=== PATIENT | female | born 1995 | race American Indian/Alaskan Native ===

== ENCOUNTER 2018-10-19 12:57 | Emergency (ER) | payer BC ==
[2018-10-19 12:57] VITALS: BMI 18.3
[2018-10-19 13:08] VITALS: TEMP 99.1
[2018-10-19] MEDS ORDERED: Sodium Chloride 0.9% 500 ML IV STA (13:21)
--- NOTE | 2018-10-19 13:34 | ED PDOC ---
Arrival/HPI - General Chief Complaint: Abdominal Pain Time Seen by Provider: 10/19/18 13:11 Historian: Patient - History of Present Illness Narrative History of Present Illness (Text): 10/19/18 13:30 22 year old female, with no significant past medical history and history of regular menses, presents to the ED for evaluation of suprapubic cramping and vaginal spotting since 1 week. Patient reports associated mild headache for past few days nut denies any other complaints. Patient denies any fevers, chills, headache, dizziness, chest pain, shortness of breath, dyspnea on exertion, cough, nausea, vomiting, diarrhea, dysuria, changes in bowel habits, back pain, neck pain, or any other complaints. Patient reports history of 6 months ago. Time/Duration: 1 week Symptom Onset: Gradual Symptom Course: Unchanged Activities at Onset: Light Context: Home Past Medical History - Provider Review Nursing Documentation Reviewed: Yes - Infectious Disease Hx of Infectious Diseases: None - Reproductive Menopause: No - Cardiac Hx Cardiac Disorders: No - Pulmonary Hx Asthma: Yes - Psychiatric Hx Substance Use: Yes - Past Surgical History Past Surgical History: No Previous - Anesthesia Hx Anesthesia: No Family/Social History - Physician Review Nursing Documentation Reviewed: Yes Family/Social History: No Known Family HX Smoking Status: Never Smoked Hx Alcohol Use: No Hx Substance Use: Yes Substance used: CANNABIS Allergies/Home Meds Allergies/Adverse Reactions: Allergies shellfish derived Allergy (Verified 04/17/18 17:25) RASH Review of Systems - Review of Systems Constitutional: absent: Fevers Eyes: absent: Vision Changes Respiratory: absent: SOB, Cough Cardiovascular: absent: Chest Pain, LÓPEZ Gastrointestinal: Abdominal Pain. absent: Stool Changes, Constipation, Diarrhea, Nausea, Vomiting Genitourinary Female: Vaginal Bleeding. absent: Dysuria, Urine Output Changes Musculoskeletal: absent: Back Pain, Neck Pain Skin: absent: Rash Neurological: Headache. absent: Dizziness, Focal Weakness Endocrine: absent: Diaphoresis, Polyuria Psychiatric: absent: Anxiety Physical Exam Vital Signs Reviewed: Yes Vital Signs Temp Pulse Resp BP Pulse Ox 10/19/18 13:04 99.1 F 99 H 20 122/62 100 Temperature: Afebrile Blood Pressure: Normal Pulse: Regular Respiratory Rate: Normal Appearance: Positive for: Well-Appearing, Non-Toxic, Comfortable Pain Distress: None Mental Status: Positive for: Alert and Oriented X 3 - Systems Exam Head: Present: Atraumatic, Normocephalic Pupils: Present: PERRL Extroacular Muscles: Present: EOMI Conjunctiva: Present: Normal Respiratory/Chest: Present: Clear to Auscultation, Good Air Exchange. No: Respiratory Distress, Accessory Muscle Use Cardiovascular: Present: Regular Rate and Rhythm, Normal S1, S2. No: Murmurs Abdomen: No: Tenderness, Distention, Peritoneal Signs Back: Present: Normal Inspection. No: CVA Tenderness Upper Extremity: Present: Normal Inspection. No: Cyanosis, Edema Lower Extremity: Present: Normal Inspection. No: Edema Neurological: Present: GCS=15, Speech Normal Skin: Present: Warm, Dry, Normal Color. No: Rashes Psychiatric: Present: Alert, Oriented x 3, Normal Insight, Normal Concentration Medical Decision Making ED Course and Treatment: 10/19/18 13:20 Impression: 22 year old female presents to the ED for evaluation of suprapubic abdominal pain and vaginal spotting. Plan: -- Labs -- IV Fluids -- Tylenol -- Urine Culture -- Urinalysis -- US Transvaginal -- Reassess and disposition Prior Visits: Notes and results from previous visits were reviewed. Progress Notes: 10/19/18 13:25 Urine test positive. Patient reports this is her 2nd and had an 6 months ago. 10/19/18 15:32 COMPARISON: Transabdominal and transvaginal obstetric ultrasound was performed with longitudinal and transverse images submitted for interpretation. FINDINGS: UTERUS: Gestational sac: Within the endometrial cavity is identified a a fluid collection within apparent yolk sac suggestive of early intrauterine gestation. No pole is yet recognizable including on trans vaginal technique. Mean sac diameter measures 0.51 cm suggesting less than 5 or 6 week estimated gestational age, concordant with LMP derived dates. Heart rate: N/a a bpm. age (Ultrasound estimated): See above. Deepali-gestational hemorrhage: None. Date of delivery (Ultrasound estimated) : Uncertain. Uterus measures 9.1 x 4.5 x 5.8 cm. Normal in size and appearance. Endometrium measures 1.2 cm. CERVIX: Measures 3.0 cm cm. Long and closed. No cervical abnormality seen. RIGHT OVARY: Measures 5.5 x 4.2 x 4.0 cm cm. No mass lesion. Normal flow. Simple cyst measures 4.5 x 3.5 x 3.9 cm suggestive of possible corpus luteum cyst. LEFT OVARY: Measures 2.9 x 1.8 x 3.1 cm. No solid mass. Normal flow. FREE FLUID: None. OTHER FINDINGS: None. IMPRESSION: Intrauterine gestation is suggested with yolk sac but no pole yet identifiable at this time. This may reflect an early intrauterine gestation less than 5 weeks estimated gestational age. Differential diagnosis is failure of gestation. Ectopic gestation is not identified and is unlikely given the aforementioned findings but is not completely excluded. Clinical correlation is advised including serial beta HCG analysis and one-week follow-up transvaginal pelvic ultrasound. Blood type B+ 10/19/18 15:34 Ultrasound reviewed and detailed return instructions given. - RAD Interpretation Radiology Orders: 10/19/18 13:20 TRANSVAGINAL [US] Stat - Medication Orders Current Medication Orders: Sodium Chloride (Sodium Chloride 0.9%) 500 mls @ 999 mls/hr IV .Q31M STA Stop: 10/19/18 13:51 Discontinued Medications Acetaminophen (Tylenol 325mg Tab) 650 mg PO STAT STA Stop: 10/19/18 13:22 - Scribe Statement The provider has reviewed the documentation as recorded by the Scribe Estrella Mayes. All medical record entries made by the Scribe were at my direction and personally dictated by me. I have reviewed the chart and agree that the record accurately reflects my personal performance of the history, physical exam, medical decision making, and the department course for this patient. I have also personally directed, reviewed, and agree with the discharge instructions and disposition. Disposition/Present on Arrival - Present on Arrival Any Indicators Present on Arrival: No History of DVT/PE: No History of Uncontrolled Diabetes: No Urinary Catheter: No History of Decub. Ulcer: No History Surgical Site Infection Following: None - Disposition Have Diagnosis and Disposition been Completed?: Yes Diagnosis: Threatened , Disposition: HOME/ ROUTINE Disposition Time: 15:32 Patient Plan: Discharge Condition: GOOD Discharge Instructions (ExitCare): Threatened Miscarriage, Bleeding With Additional Instructions: Follow-up with COLOR PRINTER OPERATOR within 2 days. Return to ED if condition worsens. Take vitamin daily Prescriptions: Multivit/Folic Acid/I [ Plus] 1 tab PO DAILY #30 tab Referrals: Daija Paul MD [Primary Care Provider] - Follow up with primary Forms: [facility] (Italian)
[2018-10-19 13:44] LABS: BASO # 0.01 K/mm3 (0.0-2.0); BASO % 0.1 % (0.0-3.0); EOS # 0.2 (0.0-0.7); EOS % 3.4 % (1.5-5.0); HEMOGLOBIN 13.2 g/dL (12.0-16.0); LYMPH # 2.2 (1.2-3.4); LYMPH % 31.6 % (22.0-35.0); MEAN CELL VOLUME 86.2 fl (80.0-105.0); MEAN CORPUSCULAR HEMOGLOBIN 28.4 pg (25.0-35.0); MEAN PLATELET VOLUME 8.9 fl (7.0-11.0); MONO # 0.6 (0.1-0.6); MONO % 8.4 % (1.0-6.0); RBC 4.64 10^6/uL (3.5-6.1); RED CELL DISTRIBUTION WIDTH 13.5 % (11.5-14.5); WHITE BLOOD COUNT 6.8 10^3/uL (4.5-11.0)
[2018-10-19 13:47] LABS: URINE APPEARANCE CLEAR (CLEAR); URINE BILIRUBIN NEGATIVE (NEGATIVE); URINE BLOOD TRACE-LYSED (NEGATIVE); URINE COLOR YELLOW (YELLOW); URINE GLUCOSE (UA) NEGATIVE (NEGATIVE); URINE LEUKOCYTE ESTERASE NEGATIVE Leu/uL (NEGATIVE); URINE PROTEIN NEGATIVE mg/dL (<30 mg/dL); URINE UROBILINOGEN 0.2 E.U./dL (<1 E.U./dL)
[2018-10-19 14:00] LABS: ALB/GLOB RATIO 1.2 (1.1-1.8); ALBUMIN 4.4 g/dL (3.0-4.8); ALT/SGPT 27 U/L (7-56); AST/SGOT 33 U/L (14-36); BLOOD UREA NITROGEN 13 mg/dL (7-21); CALCIUM 9.7 mg/dL (8.4-10.5); GFR NON-AFRICAN AMERICAN > 60
[2018-10-19 14:02] LABS: URINE BACTERIA FEW /hpf; URINE RBC 0 - 2 /hpf (0-2); URINE WBC 0 - 2 /hpf (0-6)
--- NOTE | 2018-10-19 15:34 | US ---
Date of service: 10/19/2018 PROCEDURE: OB Pelvic Ultrasound HISTORY: , vaginal bleeding and pain LMP: 09/12/2018 suggesting 5 week 2 day gestation. COMPARISON: Transabdominal and transvaginal obstetric ultrasound was performed with longitudinal and transverse images submitted for interpretation. FINDINGS: UTERUS: Gestational sac: Within the endometrial cavity is identified a a fluid collection within apparent yolk sac suggestive of early intrauterine gestation. No pole is yet recognizable including on trans vaginal technique. Mean sac diameter measures 0.51 cm suggesting less than 5 or 6 week estimated gestational age, concordant with LMP derived dates. Heart rate: N/a a bpm. age (Ultrasound estimated): See above. Deepali-gestational hemorrhage: None. Date of delivery (Ultrasound estimated) : Uncertain. Uterus measures 9.1 x 4.5 x 5.8 cm. Normal in size and appearance. Endometrium measures 1.2 cm. CERVIX: Measures 3.0 cm cm. Long and closed. No cervical abnormality seen. RIGHT OVARY: Measures 5.5 x 4.2 x 4.0 cm cm. No mass lesion. Normal flow. Simple cyst measures 4.5 x 3.5 x 3.9 cm suggestive of possible corpus luteum cyst. LEFT OVARY: Measures 2.9 x 1.8 x 3.1 cm. No solid mass. Normal flow. FREE FLUID: None. OTHER FINDINGS: None. IMPRESSION: Intrauterine gestation is suggested with yolk sac but no pole yet identifiable at this time. This may reflect an early intrauterine gestation less than 5 weeks estimated gestational age. Differential diagnosis is failure of gestation. Ectopic gestation is not identified and is unlikely given the aforementioned findings but is not completely excluded. Clinical correlation is advised including serial beta HCG analysis and one-week follow-up transvaginal pelvic ultrasound.
[2018-10-19 15:45] VITALS: BP 117/72; PULSE 76; RESP 18; O2SAT 99
== END 2018-10-19 15:47 | disposition home or self-care (01) ==
LOC: ED 12:57
DX: O20.0 Threatened abortion (principal); Z3A.00 Weeks of gestation of pregnancy not specified
CPT/HCPCS: 76817; 80053; 81001; 81025; 84702; 85025; 86850; 86900; 87086; 99285; J7040

== ENCOUNTER 2018-11-10 08:16 | Emergency (ER) | payer BC ==
[2018-11-10 08:27] VITALS: O2SAT 100; BMI 31.6
--- NOTE | 2018-11-10 08:48 | ED PDOC ---
Arrival/HPI - General Chief Complaint: Female Genitourinary Time Seen by Provider: 11/10/18 08:27 Historian: Patient - History of Present Illness Narrative History of Present Illness (Text): 11/10/18 08:46 22 f with no significant pmhx presents to the ED with vaginal bleeding. Patient is approx 8 weeks , bleeding noticed when wiping, no pelvic pain, no dysuria, no vomiting. Patient reports a normal US performed at 5 weeks. No other physical complaints at this time. Symptom Onset: Gradual Symptom Course: Unchanged Activities at Onset: Light Context: Home Past Medical History - Provider Review Nursing Documentation Reviewed: Yes - Infectious Disease Hx of Infectious Diseases: None - Cardiac Hx Cardiac Disorders: No - Pulmonary Hx Asthma: Yes - Psychiatric Hx Substance Use: Yes - Past Surgical History Past Surgical History: No Previous - Anesthesia Hx Anesthesia: No Family/Social History - Physician Review Nursing Documentation Reviewed: Yes Family/Social History: Unknown Family HX Smoking Status: Never Smoked Hx Alcohol Use: No Hx Substance Use: Yes Substance used: CANNABIS Allergies/Home Meds Allergies/Adverse Reactions: Allergies shellfish derived Allergy (Verified 11/10/18 08:27) RASH Review of Systems - Physician Review All systems were reviewed & negative as marked: Yes - Review of Systems Gastrointestinal: absent: Nausea, Vomiting Genitourinary Female: Vaginal Bleeding. absent: Dysuria Physical Exam - Physical Exam Narrative Physical Exam (Text): 11/10/18 08:47 Gen: VS reviewed, alert, well developed, well nourished, nontoxic, mild distress Eye: EOMI, PERRL Neck: no JVD, supple, no adenopathy Abd: soft, nontender, no guarding, no rebound, no rigidity Skin: good color, no rash, no cyanosis Psych: responds appropriately to questions, normal affect Neuro: oriented x3, CN2-12 intact grossly, motor intact, sensation intact Vital Signs Temp Pulse Resp BP Pulse Ox 11/10/18 08:27 97.8 F 100 H 18 134/80 100 Medical Decision Making ED Course and Treatment: 11/10/18 08:48 Patient presets to the ED with painless vaginal bleeding, will do labs and US to eval viability of . - RAD Interpretation Narrative RAD Interpretations (Text): 11/10/18 10:29 Transvaginal Ultrasound reviewed by Derek Breaux MD, shows: Single intrauterine with estimated gestational age 5 weeks 5 days by gestational sac calculation and 6 weeks 2 days by crown-rump length calculation. Yolk sac measures approximately 8 mm, larger than expected. heart rate is not detected at this time. Correlate clinically and recommend V[employer]U[facility] FILTER OPERATOR consultation and short interval follow-up as indicated. [employer]ch[employer] Res[employer] Purchasing Agent: Radiologist - Scribe Statement The provider has reviewed the documentation as recorded by the Scribe Beba Sargent All medical record entries made by the Scribe were at my direction and personally dictated by me. I have reviewed the chart and agree that the record accurately reflects my personal performance of the history, physical exam, medical decision making, and the department course for this patient. I have also personally directed, reviewed, and agree with the discharge instructions and disposition. Disposition/Present on Arrival - Present on Arrival Any Indicators Present on Arrival: No History of DVT/PE: No History of Uncontrolled Diabetes: No Urinary Catheter: No History of Decub. Ulcer: No History Surgical Site Infection Following: None - Disposition Have Diagnosis and Disposition been Completed?: Yes Diagnosis: Threatened , Vaginitis, Bacteriuria, asymptomatic in Disposition: HOME/ ROUTINE Disposition Time: 18:06 (not actual time) Patient Plan: Discharge Condition: STABLE Discharge Instructions (ExitCare): Threatened Miscarriage, Asymptomatic Bacteriuria Additional Instructions: you must follow up with asset specialist as soon as possible. your hcg quant level ( hormone level is 2653 today). Prescriptions: Cephalexin [cephalexin] 500 mg PO BID 5 Days #10 cap Miconazole Nitrate [Miconazole 7] 100 mg VG DAILY 7 Days #7 supp.vag Referrals: [facility] [Outside] - Follow up with primary Terell Friend DO [Staff Provider] - Follow up with primary Forms: [employer] (South African)
[2018-11-10 09:08] LABS: PH,URINE 6.5 (4.7-8.0); URINE BILIRUBIN NEGATIVE (NEGATIVE); URINE BLOOD LARGE (NEGATIVE); URINE GLUCOSE (UA) NEGATIVE (NEGATIVE); URINE LEUKOCYTE ESTERASE TRACE Leu/uL (NEGATIVE); URINE PROTEIN 30 mg/dL (<30 mg/dL); URINE UROBILINOGEN 0.2 E.U./dL (<1 E.U./dL)
[2018-11-10 09:18] LABS: URINE APPEARANCE CLEAR (CLEAR); URINE COLOR YELLOW (YELLOW)
[2018-11-10 09:23] LABS: URINE AMORPHOUS SEDIMENT FEW /hpf; URINE BACTERIA MANY /hpf; URINE EPITHELIAL CELLS MANY /hpf (0-5); URINE RBC 25 - 30 /hpf (0-2)
[2018-11-10 09:31] LABS: BASO # 0.01 K/mm3 (0.0-2.0); BASO % 0.2 % (0.0-3.0); EOS # 0.2 (0.0-0.7); EOS % 4.5 % (1.5-5.0); HEMOGLOBIN 13.5 g/dL (12.0-16.0); LYMPH # 1.5 (1.2-3.4); LYMPH % 31.9 % (22.0-35.0); MEAN CELL VOLUME 85.2 fl (80.0-105.0); MEAN CORPUSCULAR HEMOGLOBIN 28.9 pg (25.0-35.0); MEAN CORPUSCULAR HGB CONC 33.9 g/dl (31.0-37.0); MEAN PLATELET VOLUME 8.9 fl (7.0-11.0); MONO # 0.3 (0.1-0.6); MONO % 6.2 % (1.0-6.0); RBC 4.67 10^6/uL (3.5-6.1); RED CELL DISTRIBUTION WIDTH 13.1 % (11.5-14.5); WHITE BLOOD COUNT 4.7 10^3/uL (4.5-11.0)
--- NOTE | 2018-11-10 10:24 | US ---
Date of service: 11/10/2018 Indication: early gestation, bleeding, viability Comparison: Ob transvaginal ultrasound performed 10/19/18 Technique: Real-time transabdominal pelvic ultrasound was performed. In addition a transvaginal pelvic ultrasound was necessary to better depict pelvic anatomy. Findings: Uterus measures approximately 8.3 x 5.4 x 5.9 cm. Anteverted. Cervix length measures approximately 3.3 cm. There is a single intrauterine fetus present. The gestational sac measures 1.5 cm and is compatible with a gestational age of 5 weeks 5 days. 8 mm yolk sac. The crown-rump length measures 0.6 cm and is compatible with a gestational age of 6 weeks 2 days. heart motion is not detected. The right ovary measures 4.6 x 2.7 x 2.8 cm. The left ovary measures 2.5 x 2.2 x 3.2 cm. Blood flow was demonstrated to both ovaries. Impression: Single intrauterine with estimated gestational age 5 weeks 5 days by gestational sac calculation and 6 weeks 2 days by crown-rump length calculation. Yolk sac measures approximately 8 mm, larger than expected. heart rate is not detected at this time. Correlate clinically and recommend HOUSE CALLS NURSE consultation and short interval follow-up as indicated.
[2018-11-10 11:13] VITALS: BP 122/77; PULSE 87; RESP 17; TEMP 97.9
== END 2018-11-10 11:15 | disposition home or self-care (01) ==
LOC: ED 08:16
DX: O20.0 Threatened abortion (principal); O23.591 Infection of other part of genital tract in pregnancy, first trimester; N76.0 Acute vaginitis; R82.71 Bacteriuria; Z3A.08 8 weeks gestation of pregnancy